=== PATIENT | female | born 1990 | race Caucasian/White ===

== ENCOUNTER 2017-09-04 13:26 | Emergency (ER) | payer MEDICAID ==
[~2017-09-04 13:26] MED LIST: AMOX-362 PO
[2017-09-04 13:31] VITALS: BP 111/84
--- NOTE | 2017-09-04 13:33 | ER Report ---
History and Physical Time Seen By MD: 13:32 Hx. of Stated Complaint: RIGHT EAR ACHE FOR 5 DAYS HPI/ROS CHIEF COMPLAINT: Right ear pain HISTORY OF PRESENT ILLNESS: 27-year-old female patient presents to emergency room with complaint of right ear pain. Patient states she's been having pain for the past 5 days. She denies having any fevers or chills. She states that her pain seems to be worse when she swallows. She states that she has had an ear infection in June. She states she is on antibiotics for that. She states that she's not having sinus congestion cough, shortness of breath. Allergies: Coded Allergies: No Known Drug Allergies (Unverified , 10/26/12) Home Meds Active Scripts Amoxicillin 500 Mg Tab (AMOXICILLIN 500 MG TAB) 500 Mg Tablet, 1 TAB PO Q12H for 7 Days, #14 TAB Prov:ANDRE MUHAMMAD [employer] DEVELOPER 09/04/17 Reported Medications Amoxicillin (AMOXICILLIN) 500 Mg Capsule, 1 TAB PO Q8H TAKE ONE TABLET BY MOUTH EVERY 8 HOURS 10/26/12 Past Medical/Surgical History Patient has a past medical history of hypothyroidism. Patient denies any surgical history. Reviewed Nurses Notes: Yes Hx Smoking: No Exposure to Second Hand Smoke?: No Constitutional Vital Sign - Last 24 Hours 09/04/17 13:31 Temp 98.5 Pulse 84 Resp 18 B/P (MAP) 111/84 Pulse Ox 95 O2 Delivery Room Air Physical Exam General appearance: Alert no distress. Respiratory: Chest is non tender, lungs are clear to auscultation. Cardiac: Regular rate and rhythm. ENT: Tympanic membrane in the left ear is erythematous, bulging. The tympanic membrane in the right did show that it is bulging, there is no erythema, it does have fluid behind it. Auditory canals are patent. DIFFERENTIAL DIAGNOSIS: After history and physical exam differential diagnosis was considered for otitis media, eustachian tube dysfunction. Medical Decision Making ED Course/Re-evaluation ED Course Patient was admitted and examined, history and physical were obtained. Differential diagnoses were considered. On examination patient does have some erythema in the left tympanic membrane, the right is bulging with fluid behind it. I did concerned that she may have some eustachian tube dysfunction the right ear, however with the left ear being erythematous patient doesn't be treated with antibiotics. I discussed this with the patient. We will go ahead and treat her with amoxicillin 500 mg twice a day. She is follow-up with her primary care provider. Patient verbalized understanding and agreement with plan. Decision to Disposition Date: Sep 04, 2017 Decision to Disposition Time: 14:05 Depart Departure Latest Vital Signs Vital Signs Date Time Temp Pulse Resp B/P (MAP) Pulse Ox O2 Delivery O2 Flow Rate FiO2 09/04/17 13:31 98.5 84 18 111/84 95 Room Air Impression: Primary Impression: Right otitis media Condition: Improved Disposition: HOME OR SELF-CARE New Scripts Amoxicillin 500 Mg Tab (AMOXICILLIN 500 MG TAB) 500 Mg Tablet 1 TAB PO Q12H for 7 Days, #14 TAB Prov: ANDRE MUHAMMAD 09/04/17 Patient Instructions: Otitis Media (ED) Additional Instructions: Take amoxicillin once in the morning and once at night for 7 days. Use nasal rinses to improve healing and reduce risk for additional infections. Follow up with an Ear, Nose, and Throat specialist if the ear infections persist. Follow up with your primary care provider on Wednesday if your symptoms do not improve. Return to the emergency department if your condition worsens. Problem Qualifiers Primary Impression: Right otitis media Otitis media type: mucoid Chronicity: acute Qualified Codes: H65.111 - Acute and subacute allergic otitis media (mucoid) (sanguinous) (serous), right ear ANDRE MUHAMMAD Sep 04, 2017 13:33
[2017-09-04] MEDS ORDERED: AMOX500T10 PO (13:54)
== END 2017-09-04 14:03 | disposition home or self-care (01) ==
LOC: ER 13:37
DX: H65.111 Acute and subacute allergic otitis media (mucoid) (sanguinous) (serous), right ear (principal)
CPT/HCPCS: 99282

== ENCOUNTER 2018-04-19 11:20 | Emergency (ER) | payer SELFPAY ==
[~2018-04-19 11:20] MED LIST changes: +AMOX500T10 PO
--- NOTE | 2018-04-19 11:39 | ER Report ---
History and Physical Time Seen By MD: 11:34 Hx. of Stated Complaint: Pt. has had body aches for a week. Also, a cough that started on Wednesday. No fevers. Her daughter has been sick. HPI/ROS CHIEF COMPLAINT: Body aches HISTORY OF PRESENT ILLNESS: 28 yo female presents to the ED for body aches that she states started 1 week ago and states she developed a dry cough on Wednesday. Denies fevers, runny nose, N/V/D, No SOB or CP. Denies tobacco use. States that daughter was recently sick with a "bad cold" REVIEW OF SYSTEMS: Constitutional: As above. Respiratory: As above Cardiovascular: No chest pain, no palpitations. Gastrointestinal: No vomiting, no abdominal pain. Musculoskeletal: No back pain. Allergies: Coded Allergies: No Known Drug Allergies (Unverified , 04/19/18) Home Meds Active Scripts Amoxicillin (AMOXICILLIN) 500 Mg Capsule, 1 CAP PO TID for infection, #20 CAPSULE Prov:FAMILIA VEGAS DO 10/17/17 Amoxicillin 500 Mg Tab (AMOXICILLIN 500 MG TAB) 500 Mg Tablet, 1 TAB PO Q12H for 7 Days, #14 TAB Prov:ANDRE MUHMAMAD 09/04/17 Reported Medications Amoxicillin (AMOXICILLIN) 500 Mg Capsule, 1 TAB PO Q8H TAKE ONE TABLET BY MOUTH EVERY 8 HOURS 10/26/12 Past Medical/Surgical History The patient has a past medical and surgical history of hypothyroidism. Reviewed Nurses Notes: Yes Hx Smoking: No Exposure to Second Hand Smoke?: No Constitutional Vital Sign - Last 24 Hours 04/19/18 04/19/18 04/19/18 04/19/18 11:26 11:27 11:30 11:35 Temp 98.0 Pulse 102 100 103 Resp 18 B/P (MAP) 127/86 (100) 127/86 122/72 (89) Pulse Ox 90 89 89 O2 Delivery Room Air 04/19/18 04/19/18 04/19/18 04/19/18 11:40 11:45 11:50 11:55 Pulse 101 111 101 95 Pulse Ox 99 89 91 90 04/19/18 04/19/18 04/19/18 04/19/18 12:00 12:05 12:10 12:15 Pulse 94 89 91 87 B/P (MAP) 113/58 (76) Pulse Ox 91 93 89 91 04/19/18 04/19/18 04/19/18 04/19/18 12:20 12:25 12:30 12:35 Pulse 90 92 108 92 B/P (MAP) 113/63 (80) Pulse Ox 92 92 92 90 04/19/18 04/19/18 04/19/18 04/19/18 12:40 12:45 12:50 12:55 Pulse 105 102 95 107 Pulse Ox 90 84 91 87 04/19/18 04/19/18 04/19/18 04/19/18 13:00 13:05 13:10 13:15 Pulse 105 100 99 107 B/P (MAP) 133/90 (104) Pulse Ox 91 89 92 90 04/19/18 04/19/18 04/19/18 04/19/18 13:20 13:25 13:30 13:35 Pulse 105 102 95 100 B/P (MAP) 125/67 (86) Pulse Ox 89 92 92 94 Physical Exam General Appearance: The patient is alert, has no immediate need for airway protection and no current signs of toxicity. Eyes: Pupils equal and round no injection. Respiratory: Chest is non tender, lungs are clear to auscultation. Cardiac: regular rate and rhythm, no murmurs clicks or rubs Gastrointestinal: Abdomen is soft and non tender, no masses, bowel sounds normal. Musculoskeletal: Neck: Neck is supple and non tender. Extremities have full range of motion and are non tender. Skin: No rashes or lesions. DIFFERENTIAL DIAGNOSIS: After history and physical exam differential diagnosis was considered for acute bronchitis, RSV, pneumonia, influenza, pertussis, URI. Medical Decision Making Data Points Laboratory Hematology Test 04/19/18 12:04 Influenza Virus Type A (PCR) Positive (NEGATIVE) Influenza Virus Type B (PCR) Negative (NEGATIVE) Chemistry Test 04/19/18 12:04 Influenza Virus Type A (PCR) Positive (NEGATIVE) Influenza Virus Type B (PCR) Negative (NEGATIVE) ED Course/Re-evaluation ED Course Patient was admitted to a room. History and physical were obtained. Differential diagnoses considered. Positive for influenza A. Discussed with patient quarantine, supportive care, hydration and rest. Follow up with PCP within 1 week. Return to ED if concerns or worsening symptoms. Patient expressed understanding and was discharged home. Decision to Disposition Date: Apr 19, 2018 Decision to Disposition Time: 13:30 Depart Departure Latest Vital Signs Vital Signs Date Time Temp Pulse Resp B/P (MAP) Pulse Ox O2 Delivery O2 Flow Rate FiO2 04/19/18 13:35 100 94 04/19/18 13:30 125/67 (86) 04/19/18 11:27 98.0 18 Room Air Impression: Primary Impression: Influenza A Condition: Improved Disposition: HOME OR SELF-CARE Patient Instructions: Influenza (GEN) Additional Instructions: Drink plenty of water, get plenty of rest, Tylenol or ibuprofen for fever and/or aches. Follow up with PCP within 1 week for re-evaluation. Return to ED for any other concerns or worsening symptoms. TIFFANY PIERRE RING ATTACHER-BC Apr 19, 2018 11:39
[2018-04-19 13:30] VITALS: BP 125/67
== END 2018-04-19 13:46 | disposition home or self-care (01) ==
LOC: ER 11:51
DX: J11.1 Influenza due to unidentified influenza virus with other respiratory manifestations (principal)
CPT/HCPCS: 87502; 99282